=== PATIENT | male | born 1975 | race Two or more races ===

== ENCOUNTER 2020-08-25 14:45 | Emergency (ER) | payer MEDICAID, OTHER ==
[~2020-08-25] VITALS: Ht 165.1 cm; Wt 77.1 kg
[2020-08-25 14:51] VITALS: BP 106/72
== END 2020-08-25 17:14 | disposition home or self-care (01) ==
LOC: ER 14:45
DX: I10 Essential (primary) hypertension (principal); Z76.0 Encounter for issue of repeat prescription

== ENCOUNTER 2020-09-10 16:19 | Emergency (ER) | payer MEDICAID ==
[~2020-09-10] VITALS: Ht 180.3 cm; Wt 81.6 kg
[2020-09-10 16:22] VITALS: BP 116/79
== END 2020-09-10 18:28 | disposition home or self-care (01) ==
LOC: ER 16:19
DX: L30.9 Dermatitis, unspecified (principal); Z76.0 Encounter for issue of repeat prescription; I10 Essential (primary) hypertension

== ENCOUNTER 2020-09-27 16:28 | Emergency (ER) | payer MEDICAID ==
[~2020-09-27] VITALS: Ht 165.1 cm; Wt 76.2 kg
[2020-09-27 16:33] VITALS: BP 115/61
== END 2020-09-27 18:09 | disposition home or self-care (01) ==
LOC: ER 16:28
DX: F20.9 Schizophrenia, unspecified (principal); I10 Essential (primary) hypertension; Z76.0 Encounter for issue of repeat prescription

== ENCOUNTER → 2021-06-28 | Emergency (ER) | payer MEDICAID ==
[~2021-06-28] VITALS: Ht 165.1 cm; Wt 81.6 kg
[2021-06-28 12:42] VITALS: BP 113/82
== END | disposition home or self-care (01) ==
LOC: ER 12:32
DX: F20.9 Schizophrenia, unspecified (principal); I10 Essential (primary) hypertension